=== PATIENT | female | born 1975 | race Caucasian/White ===

== ENCOUNTER 2016-03-23 16:52 | Emergency (ER) | payer BC ==
[~2016-03-23] VITALS: Ht 162.6 cm; Wt 132.0 kg
[~2016-03-23 16:52] MED LIST: ALEVE220 MG PO; CEPACOL SORE T1 EAC9 MM; CHLORASEPTIC177 ML MM; MULTIPLE VITAM1 EAC4 PO; PHENERGAN-CODE120 ML PO; PRILOSEC40 MG PO; TESSALON PERLE100 MG PO; VENTOLIN HFA18 GM IH; VITAMIN C500 M1 PO; ZINC50 M3 PO
[2016-03-23 17:34] LABS: HEMATOCRIT 43.1 % (36.0-46.0); MCH 29.6 PG (29.0-34.0); MCHC 34.3 G/DL (30.0-36.0); MCV 86.2 FL (83-99); MEAN PLAT.VOLUME 10.5 uM^3 (9.5-12.4); PLATELET COUNT 179 K/uL (156-360); RBC DIS.WIDTH-CV 12.9 % (11.8-14.6); RBC DIS.WIDTH-SD 39.8 % (39-53); WHITE BLOOD COUNT 9.9 K/uL (4.1-10.2)
[2016-03-23 17:54] LABS: ANION GAP 8 MEQ/L (2-14); CHLORIDE 103 MEQ/L (99-109); POTASSIUM 3.8 MEQ/L (3.7-5.4); SAMPLE HEMOLYSIS CHECK 0; SAMPLE ICTERIC CHECK 0; SAMPLE LIPEMIA CHECK 0; SODIUM 138 MEQ/L (136-147); TOTAL BILIRUBIN 1.1 MG/DL (0.0-1.0)
[2016-03-23 18:00] LABS: ALKALINE PHOSPHATASE 87 IU/L (3-129); GFR ESTIMATE (CALCULATED) > 59 mL/min/; GLUCOSE 105 mg/dL (70-99); LIPASE 15 U/L (1.0-51.0); UREA NITROGEN (BUN) 13 mg/dL (9-23)
[2016-03-23 18:38] LABS: QUANTITATIVE HCG < 4.0 MIU/ML
[2016-03-23 19:13] LABS: BILIRUBIN NEGATIVE; BLOOD NEGATIVE; COLOR YELLOW ((YELLOW)); GLUCOSE (STRIP) NEGATIVE; KETONES NEGATIVE; LEUKOCYTES NEGATIVE; NITRITE NEGATIVE; PH, URINE 5.5 (5-8); PROTEIN (STRIP) NEGATIVE; UROBILINOGEN 0.2 MG/DL (0.2-1.0)
[2016-03-23 19:26] LABS: ADD MIUA? NO; UCUL ADDED? NO
[2016-03-23] MEDS ORDERED: ZOFRAN ODT4 MG PO (20:07)
[2016-03-23 21:52] VITALS: BP 140/79
== END 2016-03-23 21:53 | disposition home or self-care (01) ==
LOC: EME 16:52
DX: R10.30 Lower abdominal pain, unspecified (principal); R11.2 Nausea with vomiting, unspecified
CPT/HCPCS: 71020; 80053; 81003; 83690; 84702; 85027; 99281; 99284; J2405; J7030